=== PATIENT | female | born 1995 | race Caucasian/White ===

== ENCOUNTER 2019-11-07 15:44 | Outpatient (CLI) | payer OTHER, SELFPAY ==
--- NOTE | ~2019-11-07 | US_ITS ---
EXAMINATION: US pelvic complete w TV DATE: 11/07/2019 16:21 INDICATION: Polycystic ovarian syndrome. TECHNIQUE: Multiple transabdominal and transvaginal sonographic images of the pelvis were obtained. COMPARISON: None. FINDINGS: TRANSABDOMINAL ULTRASOUND: The uterus measures 5.9 x 3.6 x 4.5 cm. There is trace free fluid in the pelvis. TRANSVAGINAL ULTRASOUND: The endometrial complex measures 9 mm in thickness. The right ovary measures 5.2 x 3.1 x 3.9 cm. The left ovary measures 2.7 x 2.0 x 2.7 cm. There is a 2.4 cm hemorrhagic cyst in left ovary. There is a 3.3 cm hypoechoic mass in right ovary. There is normal vascular flow in the ovaries. IMPRESSION: 1. 3.3 cm hypoechoic mass in right ovary, which may be a hemorrhagic cyst. Pelvis ultrasound is recom mended in 6-12 weeks. Reviewed, dictated and finalized at location B. IMPRESSION: 1. 3.3 cm hypoechoic mass in right ovary, which may be a hemorrhagic cyst. Pelv is ultrasound is recommended in 6-12 weeks.
== END 2019-11-07 15:45 ==
PROVIDERS: Visit Provider Obstetrics & Gynecology
DX: E28.2 Polycystic ovarian syndrome (principal)
CPT/HCPCS: 76830; 76856

== ENCOUNTER 2019-11-12 07:06 | Emergency (ER) | payer OTHER, SELFPAY ==
--- NOTE | ~2019-11-12 | XR_ITS ---
EXAMINATION: XR chest 2V DATE: 11/12/2019 08:47 INDICATION: Shortness of breath and abdominal pain TECHNIQUE: Frontal and lateral views of the chest are obtained COMPARISON: None available FINDINGS: The lungs are free of acute opacities. There is no pleural effusion or pneumothorax. The ca rdiomediastinal silhouette is normal. The visualized bones and soft tissues are unremarkable. IMPRESSION: 1. No acute cardiopulmonary abnormality. Reviewed, dictated and finalized at location A.
--- NOTE | ~2019-11-12 | US_ITS ---
EXAMINATION: US pelvic complete w TV DATE: 11/12/2019 08:49 INDICATION: Lower pelvic pain, history of PCOS TECHNIQUE: Multiple transabdominal and endovaginal sonographic images of the pelvis were obtained. COMPARISON: 11/07/2019 FINDINGS: The uterus measures 7.4 x 3.6 x 5.1 cm. The endometrial complex measures 5 mm. The right ov lucie measures 5.7 x 4.1 x 3.2 cm. There are multiple cystic lesions of the right ovary. The largest me asures 4.0 x 3.5 x 2.0 cm and has an increasingly cystic appearance when compared to the recent ultra sound. The left ovary measures 2.3 x 1.6 x 2.2 cm. There is normal vascular flow in the right ovary. There is no free fluid in the pelvis. IMPRESSION: 1. Multiple cystic lesions of the right adnexa, one of which is consistent with a resolving hemorrhag ic cyst. Follow-up pelvic ultrasound in 6-12 weeks is recommended. Reviewed, dictated and finalized at location A. IMPRESSION: 1. Multiple cystic lesions of the right adnexa, one of which is consistent with a resolving hemorrhagic cyst. Follow-up pelvic ultrasound in 6-12 weeks is rec ommended.
--- NOTE | ~2019-11-12 | CT_ITS ---
EXAMINATION: CT brain wo con INDICATION: Right temporal headache COMPARISON: None TECHNIQUE: Standard unenhanced head CT. The dose-length product (DLP) was 605.33 mGy-cm. The mA was a djusted according to patient size. Iterative reconstruction technique was employed. FINDINGS: There is no intracranial hemorrhage, acute infarction, or abnormal mass lesion. The ventric les are normal. There is no abnormal mass effect or midline shift. The alfonso-white matter differentiat ion is normal. The basal cisterns are patent. The orbits are normal. The paranasal sinuses, mastoids and calvarium are normal. IMPRESSION: 1. No acute intracranial abnormality. Reviewed, dictated and finalized at location A.
[2019-11-12 07:11] VITALS: BP 124/89; PULSE 81; RESP 16; TEMP 36.8; O2SAT 97
--- NOTE | 2019-11-12 07:19 | ECG_ITS ---
Measurements Intervals [place] Rate: 78 P: 40 KS: 163 QRS: 53 QRSD: 86 T: 43 QT: 391 QTc: 447 Interpretive Statements SINUS RHYTHM BASELINE ARTIFACT- I, II, III, AVR NORMAL ECG Electronically Signed On 11-12-2019 8:21:18 CDT by Rosas Shah D.O.
--- NOTE | 2019-11-12 07:21 | ED.ABDPAIN ---
HPI - Abdominal Pain General Chief Complaint: Abdominal Pain Stated Complaint: abd pain Time Seen by Provider: 11/12/19 07:21 Source: patient Mode of arrival: ambulatory Limitations: no limitations History of Present Illness HPI narrative: Patient is a 24-year-old female with a history of PCOS who presents for evaluation of headache, shortness of breath, abdominal pain. Patient states she awakened this morning suddenly feeling short of breath. She denied any chest pain. Patient states she reached to get her phone and felt lightheaded and dizzy. Patient states then she began to experience a sharp, shooting headache pain on the right side of her head which lasted for approximately 5 seconds before resolving. Patient states was associated with some blurry vision which is now resolved. Patient states she then began to experience lower abdominal cramping which she has a history of and usually attributes to her PCOS, but states this is more severe them PCOS abdominal pain. Patient states she recently had an ultrasound ordered outpatient by Dr. Arauz. Patient denies any current chest pain, shortness of breath, vomiting. She reports mild, aching abdominal pain in the lower abdomen. Menses ended for patient on the . Patient without any recurrent vaginal discharge, vaginal bleeding. No urinary symptoms. No recent sick contacts. No [employer] contacts. No loss of sense of taste or smell. No runny nose, sore throat, cough. Related Data Home Medications Medication Instructions Recorded Confirmed lithium carbonate 450 mg 450 mg PO BID 08/07/19 08/08/19 tablet,extended release Allergies Allergy/AdvReac Type Severity Reaction Status Date / Time ciprofloxacin Allergy Mild Hives Verified 11/12/19 07:15 Review of Systems Review of Systems: Narrative: CONSTITUTIONAL: Denies fever, chills, or sweats. EYES: Denies current visual changes, redness, or discharge. ENT: Denies rhinorrhea, congestion, sore throat, or otalgia. CARDIOVASCULAR: Denies chest pain, palpitations, or edema. RESPIRATORY: Denies current cough or dyspnea. GASTROINTESTINAL: Reports lower abdominal pain GENITOURINARY: Denies dysuria or hematuria. SKIN: Denies rash or itching. MUSCULOSKELETAL: Denies back pain, joint pain, or myalgia. NEUROLOGIC: Denies current headache, numbness, or weakness. PSYCHIATRIC: Reports history of anxiety [facility] Family History Family History Mother Family history of obesity Father Family history of malignant neoplasm of brain Social History Social History Smoking status: Never smoker Second hand tobacco smoke exposure: No Alcohol intake: current Drinks per week: 2 Substance use: never Gender identity (if verbalized by the patient): Female Exam Narrative: Exam Narrative: GENERAL: Awake, alert, conversant HEAD: Normocephalic, atraumatic. EYES: PERRLA and EOMI. ENT: Nares clear, no rhinorrhea or epistaxis. Mucous membranes moist. NECK: Supple. CHEST: No respiratory distress, breathing even and non labored, no chest wall tenderness, lungs are clear without wheezing HEART: Regular rate, sinus rhythm ABDOMEN:Non distended, mild lower abdominal tenderness no rebound, nonrigid, no guarding EXTREMITIES: Normal range of motion. No edema. SKIN: Warm, dry, no rash. NEURO:No focal deficits. Alert and oriented x3 Course Vital Signs Vital signs: Vital Signs Temperature 36.8 C 11/12/19 07:11 Pulse Rate 81 11/12/19 07:11 Respiratory Rate 16 11/12/19 07:11 Blood Pressure 124/89 11/12/19 07:11 Pulse Oximetry 97 11/12/19 07:11 Temperature 36.8 C 11/12/19 07:11 Pulse Rate 71 11/12/19 07:46 Respiratory Rate 15 11/12/19 07:46 Blood Pressure 118/77 11/12/19 07:46 Pulse Oximetry 99 11/12/19 07:46 MDM - Abdominal Pain MDM Narrative Medical decision making narrative: Patient
[2019-11-12 07:28] LABS: Basophils Percent Auto 0.4 % (0.2-1.2); Eosinophils Absolute Auto 0.2 K/mm3 (0-0.3); Eosinophils Percent Auto 2.7 % (0-4.4); Hematocrit 40.5 % (37.0-47.0); Hemoglobin 13.8 g/dL (12.0-15.0); Immature Granulocyte Absolute 0.03 K/mm3 (0.00-0.031); Immature Granulocyte Percent A 0.4 % (0-0.5); Lymphocytes Absolute Auto 2.17 K/mm3 (0.9-3.2); Lymphocytes Percent Auto 29.8 % (18.3-44.2); Mean Corpuscular HGB Conc 34.1 g/dl (32-36); Mean Corpuscular Hemoglobin 30.1 pg (26-34); Mean Corpuscular Volume 88.2 fl (80-100); Mean Platelet Volume 11.4 fl (7.4-10.4); Monocytes Absolute Auto 0.7 K/mm3 (0.1-0.6); Monocytes Percent Auto 9.5 % (2.6-8.5); Neutrophils Absolute Auto 4.2 K/mm3 (1.3-6.7); Neutrophils Percent Auto 57.2 % (45.5-73.1); Platelet Count Result 207 k/mm3 (150-375); Red Blood Count 4.59 M/mm3 (4.2-5.4); Red Cell Distribution Width 12.3 % (11.5-14.5); White Blood Count 7.3 K/mm3 (4.5-10.0)
[2019-11-12 07:46] VITALS: BP 118/77; PULSE 71; RESP 15; O2SAT 99
[2019-11-12 07:46] LABS: Add Urine Microscopic? YES; Appearance Urine Cloudy (Clear); Bacteria Urine 2+ /hpf; Bilirubin Urine Negative (Negative); Blood Urine Negative (Negative); Color Urine Yellow (Yellow); Glucose Urine UA Negative (Negative); Ketones Urine Negative (Negative); Leukocyte Esterase Ur 1+ LEU/UL (Negative); Mucus Urine Few /lpf; Nitrate Urine Negative (Negative); Protein Urine Negative (Negative); Squamous Epithelial Cell Urine Many /hpf (Few); Urobilinogen Urine Negative mg/dL (<2.0); WBC Urine 21-30 /hpf
--- NOTE | 2019-11-12 08:00 | PC.NURSE ---
Pt taken to CT at this time
[2019-11-12 08:01] LABS: Alanine Aminotransferase 27 U/L (4-35); Albumin Level 3.9 g/dL (3.5-5.1); Alkaline Phosphatase 87 U/L (38-126); Anion Gap 5 mmol/L (8-16); Aspartate Amino Transferase 26 U/L (14-36); Bilirubin,Total 0.2 mg/dL (0.2-1.3); Blood Urea Nitrogen 13 mg/dL (7-17); Calcium 8.8 mg/dL (8.4-10.2); Carbon Dioxide 24 mmol/L (22-30); Chloride 107 mmol/L (98-107); Estimated CRCL calculation 121 ml/min; Estimated Glomerular Filt Rate > 60; Glucose 102 mg/dL (65-105); Lipase 101 U/L (23-300); Potassium 4.2 mmol/L (3.4-5.0); Sodium 136 mmol/L (137-145)
--- NOTE | 2019-11-12 08:35 | PC.NURSE ---
Attempted to give medications, pt still in US and CT
[2019-11-12] MEDS: MORPHINE SULFATE 2 MG/ML INJ IV PUSH (09:00)
[2019-11-12] MEDS: ONDANSETRON INJ 4 MG/2 ML VIAL IV PUSH (09:00)
[2019-11-12 11:25] VITALS: BP 114/76; PULSE 61; RESP 18; O2SAT 98
== END 2019-11-12 11:26 | disposition home or self-care (01) ==
PROVIDERS: Emergency Provider Emergency Medicine; PCP Physician Assistant
DX: E28.2 Polycystic ovarian syndrome (principal)
CPT/HCPCS: 36415; 70450; 71046; 76830; 76856; 80053; 81001; 81025; 83690; 85025; 87086; 87088; 93005; 96365; 96375; 99284; J0131; J2270; J2405

== ENCOUNTER 2021-03-21 11:20 | Emergency (ER) | payer OTHER, SELFPAY ==
[2021-03-21 11:36] VITALS: BP 118/80; PULSE 74; RESP 16; TEMP 36.9; O2SAT 99
--- NOTE | 2021-03-21 11:46 | ED.URI ---
HPI - URI/Sore Throat General Stated Complaint: lightheaded,diarrhea,nausea Time Seen by Provider: 03/21/21 11:47 Source: patient and family History of Present Illness HPI Narrative: PATIENT PRESENTS WITH URI SYMPTOMS. OCCASIONAL DIARRHEA. NO ABDOMINAL PAIN NO SHORTNESS OF BREATH AND NO CHEST PAIN. PATIENT DENIES ANY DIZZINESS AT PRESENT DOES REPORT URI SYMPTOMS. NORMAL APPETITE AND NORMAL ACTIVITY. Patient also reports some sinus congestion and tenderness her symptoms have been since 1224. MD elicited complaint: nasal congestion Related Data Allergies Allergy/AdvReac Type Severity Reaction Status Date / Time ciprofloxacin Allergy Mild Hives Verified 03/21/21 12:00 Review of Systems Review of Systems: CONSTITUTIONAL: Denies chills, or sweats. Reports fever and generalized body aches EYES: Denies visual changes, redness, or discharge. ENT: Denies otalgia. Reports nasal congestion runny nose and sore throat CARDIOVASCULAR: Denies chest pain, palpitations, or edema. RESPIRATORY: Denies dyspnea. Reports occasional cough GASTROINTESTINAL: Denies abdominal pain, nausea, vomiting, or diarrhea. GENITOURINARY: Denies dysuria or hematuria. SKIN: Denies rash or itching. MUSCULOSKELETAL: Denies back pain, joint pain, or myalgia. Reports generalized body aches NEUROLOGIC: Denies headache, numbness, or weakness. PSYCHIATRIC: Denies anxiety or depression. [facility] Family History Family History Mother Family history of obesity Father Family history of malignant neoplasm of brain Social History Social History Smoking status: Never smoker Second hand tobacco smoke exposure: No Alcohol intake: current Drinks per week: 2 Substance use: never Gender identity (if verbalized by the patient): Female Comments At time of signature, agree with nursing past medical, surgical, social and family history. There is no relevant family history pertinent to the presenting complaint Exam Narrative: The patient is a well-developed, well-nourished in no acute distress. SKIN: Skin is warm and dry without erythema, swelling or exudate. There is good turgor. No tenting. HEAD: Atraumatic. Normocephalic. No temporal or scalp tenderness. EYES: Moist and bright. Sclera and conjunctivae normal. No discharge. PERRLA. Extraocular motions intact. Gross visual acuity intact. EARS: Pinna is normal shape and contour. Clear external auditory canals. TM pearly arteaga with good cone of light, no erythema or suppuration. Bilateral cerumen noted no gross hearing deficit. NOSE: pink, moist mucosa with good air movement. Clear rhinorrhea without nasal flaring. Septum midline. Mouth: moist mucous membranes. THROAT; mild erythema noted to posterior oropharynx with moderate postnasal drainage. Without exudate or ulceration.. Uvula midline. Normal movement of soft palate. NECK: Supple and nontender with full range of motion without discomfort. No meningeal signs. LUNGS: Equal and bilateral breath sounds without wheezes, rales or rhonchi. CHEST: The chest wall is without retractions or use of accessory muscles. HEART: Has a regular rate and rhythm without murmur, gallops, click or rub. ABDOMEN: Soft, nontender with positive active bowel sounds. No rebound tenderness. EXTREMITIES: Without cyanosis, clubbing or edema. Equal 2+ distal pulses and 2 second capillary refill noted. ANKLE EXAM SKIN INTACT. NORMAL DP PULSE, NORMAL CAP REFILL. NORMAL SENSATION. NEUROLOGIC: alert, active, . The patient moves all extremities with normal muscle strength. Normal muscle tone is noted. Normal coordination is noted. NO focal neurological findings noted. Course Course Level of Care: Express Care Visit Vital Signs Vital signs: Vital Signs Temperature 36.9 C 03/21/21 11:36 Pulse Rate 74 03/21/21 11:36 Respiratory Rate 16 03/21/21 11:36 Blood Pressu
== END 2021-03-21 12:15 | disposition home or self-care (01) ==
PROVIDERS: Emergency Provider Nurse Practitioner Family; PCP Physician Assistant
DX: J06.9 Acute upper respiratory infection, unspecified (principal); R19.7 Diarrhea, unspecified; J01.00 Acute maxillary sinusitis, unspecified; M79.9 Soft tissue disorder, unspecified
CPT/HCPCS: 87081; 87804; 87880; 99213; G0463

== ENCOUNTER 2021-08-27 13:41 | Emergency (ER) | payer OTHER, SELFPAY ==
[2021-08-27 13:45] VITALS: BP 124/83; PULSE 89; RESP 16; TEMP 36.4; O2SAT 99
--- NOTE | 2021-08-27 13:48 | ED.SKABFB ---
HPI - Skin/Abscess/Foreign Bdy General Chief complaint: Skin/Abscess/Foreign Body Stated complaint: poison enrique Time Seen by Provider: 08/27/21 13:49 Source: patient and RN notes reviewed Mode of arrival: ambulatory Limitations: no limitations History of Present Illness HPI narrative: 25-year-old female presents with concern for poison enrique. 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 Reports her rash has continued to worsen and spread. She denies swollen lips, swollen tongue, trouble breathing. She reports she tried several [id number] creams and has been taking antihistamines [id number] without relief. complaint: rash Related Data Allergies Allergy/AdvReac Type Severity Reaction Status Date / Time ciprofloxacin Allergy Mild Hives Verified 08/27/21 13:51 Review of Systems Review of Systems: CONSTITUTIONAL: Denies malaise, chills, sweats, or fever. EYES: Denies redness, or discharge. ENT: Denies rhinorrhea, congestion, swollen lips, swollen tongue CARDIOVASCULAR: Denies chest pain, palpitations, or edema. RESPIRATORY: Denies cough or dyspnea. GASTROINTESTINAL: Denies abdominal pain, nausea, vomiting SKIN: Reports itchy rash on bilateral arms and legs MUSCULOSKELETAL: Denies joint painor myalgia. NEUROLOGIC: Denies headache. All systems reviewed & are unremarkable except as noted in HPI and below PMFSH Family History Family History Mother Family history of obesity Father Family history of malignant neoplasm of brain Social History Social History Smoking status: Never smoker Second hand tobacco smoke exposure: No Alcohol intake: current Drinks per week: 2 Substance use: never Gender identity (if verbalized by the patient): Female Comments At time of signature, agree with nursing past medical, surgical, social and family history. There is no relevant family history pertinent to the presenting complaint Exam Narrative: GENERAL: Well-appearing, well-nourished, and in no acute distress. HEAD: Normocephalic, atraumatic. EYES: PERRLA, conjunctivae clear, and EOMI. ENT: Mucous membranes moist. Oropharynx without edema, erythema or lesions. NECK: Supple. No lymphadenopathy CHEST: Clear to auscultation. No respiratory distress. HEART: Regular rate and rhythm. SKIN: Warm, dry. Patches of raised erythema and mostly in linear patterns noted to bilateral arms and legs NEURO: Alert and oriented x3. PSYCH: Normal mood and affect Course Course Emergency Course: Patient is aware of diagnosis, understands and agrees to treatment plan. Anticipatory guidance given. Patient agrees to follow-up as directed and is aware of reasons to seek care at the emergency department. Portions of this record may have been created with voice recognition software Level of Care: Express Care Visit Vital Signs Vital signs: Reviewed. MDM - Skin/Abscess/Foreign Bdy MDM Narrative Medical decision making narrative: Does not appear at this time to be erythema multiforme, bullous, SJS, TEN; no evidence at this time to suggest RMSF, endocarditis or Lyme disease; patient looks well, nontoxic and is tolerating oral intake; no neurologic signs or symptoms; no headache, photophobia or neck pain; afebrile; appropriate for initial outpatient treatment; discussed the importance of follow-up, patient agrees; question, viral exanthema, contact dermatitis, allergic dermatitis, eczema, urticaria, scabies No soft palate or uvula edema, no tongue, lip edema or other mucosal involvement, no respiratory compromise, no stridor, no wheezing, no wheezing, no history of syncope, no hypotension, no nausea, vomiting, or diarrhea. Instructed patient to go to nearest ER immediately for any worsening symptoms including but not limited to: fever, spreading rash, pain, sore throat, headache, dizziness, chest pain, troubl
== END 2021-08-27 14:00 | disposition home or self-care (01) ==
PROVIDERS: Emergency Provider Nurse Practitioner
DX: L23.7 Allergic contact dermatitis due to plants, except food (principal)
CPT/HCPCS: 99213; G0463

== ENCOUNTER → 2022-02-08 16:35 | Outpatient (CLI) | payer BC, SELFPAY ==
--- NOTE | ~2022-02-08 | XR_ITS ---
XR lumbar spine 2-3V 02/08/2022 17:44 Indication: Back pain Procedure: 3 views lumbar spine Comparison: No prior studies for comparison. Findings: There is accentuated lumbar lordosis. Vertebral body heights are maintained. No significant disc narrowing. No evidence for spondylolysis or spondylolisthesis. Pedicles intact. Sacral foramen are symmetric. There is a focal calcification in the left gluteal region. Impression: 1: No significant abnormality of the lumbar spine. Reviewed, dictated and finalized at location A. S OPERATIONS ASSISTANT Impression: 1: No significant abnormality of the lumbar spine.
--- NOTE | ~2022-02-08 | XR_ITS ---
XR_[id number]_CR INDICATION: Neck pain TECHNIQUE: 4 views of the cervical spine. FINDINGS: No prior studies for comparison. The cervical spine is visualized to the cervicothoracic junction. There is no prevertebral soft tiss ue swelling, listhesis, or loss of vertebral body height. Intervertebral disc spaces are normal. Th e osseous central canal is patent. No displaced cervical spine fractures are identified. IMPRESSION: 1. No acute osseous abnormality of the cervical spine. Reviewed, dictated and finalized at location A. [employer] WORKERS
--- NOTE | ~2022-02-08 | XR_ITS ---
XR thoracic spine 2V 02/08/2022 17:44 Indication: Back pain Procedure: 2 views thoracic spine Comparison: Cervical spine dated 02/08/2022 Findings: Vertebral body heights are maintained. Pedicles intact. Normal thoracic alignment. No fract ure or traumatic malalignment. Draining osseous structures are unremarkable. No paraspinal soft tissu e abnormality. Impression: 1: No significant abnormality of the thoracic spine. Reviewed, dictated and finalized at location A. CORN PRODUCTION MANAGER Impression: 1: No significant abnormality of the thoracic spine.
--- NOTE | ~2022-02-08 | XR_ITS ---
XR hip BI 2V w AP pelvis 02/08/2022 17:44 Indication: Pelvic pain and hip pain Procedure: 3 views each hip including AP pelvis Comparison: No prior studies for comparison. Findings: Pelvic rings are intact. Sacral foramen are symmetric. No fracture, subluxation or dislocat ion. No soft tissue abnormality. No foreign bodies. Impression: 1: No significant bone or joint abnormality. Reviewed, dictated and finalized at location A. ESSIONAL ATHLETES COACH Impression: 1: No significant bone or joint abnormality.
== END ==
PROVIDERS: PCP Chiropractor; Visit Provider Chiropractor
DX: M54.2 Cervicalgia (principal); M54.6 Pain in thoracic spine; M54.50 Low back pain, unspecified; M25.551 Pain in right hip; M25.552 Pain in left hip
CPT/HCPCS: 72040; 72070; 72100; 73521

== ENCOUNTER 2023-07-01 12:19 | Outpatient (CLI) | payer BC, SELFPAY ==
--- NOTE | ~2023-07-01 | US_ITS ---
EXAMINATION: US thyroid DATE: 07/01/2023 12:30 INDICATION: Nontoxic goiter TECHNIQUE: Multiple ultrasound images of the thyroid were obtained. COMPARISON: None. FINDINGS: The right thyroid lobe measures 4.5 x 1.8 x 1.7 cm. The left thyroid lobe measures 5.6 x 1.5 x 1.5 c m. There is an 8 mm solid hypoechoic nodule in the inferior right thyroid lobe which is wider than t all with ill-defined margins and without echogenic foci (TI-RADS 4, moderately suspicious , FNA if >= 1.5 cm, annual followup is >=1 cm). There is normal echotexture, echogenicity and vascular flow throu ghout the remainder of the thyroid gland. IMPRESSION: 1. 8 mm TI-RADS 4 right thyroid nodule which remains below size criteria for either biopsy or follow- up. Recommend clinical followup with repeat imaging if there are changes on physical exam. Reviewed, dictated and finalized at location A. IMPRESSION: 1. 8 mm TI-RADS 4 right thyroid nodule which remains below size criteria for ei ther biopsy or follow-up. Recommend clinical followup with repeat imaging if th ere are changes on physical exam.
== END 2023-07-01 12:20 ==
LOC: MICIMG 12:19
PROVIDERS: PCP Family Medicine; Visit Provider Family Medicine
DX: E04.9 Nontoxic goiter, unspecified (principal)
CPT/HCPCS: 76536

== ENCOUNTER 2023-09-06 13:04 | Outpatient (CLI) | payer BC, SELFPAY ==
--- NOTE | ~2023-09-06 | US_ITS ---
US transvaginal Ordering provider: Soheila Chavez History: . Pelvic pain . Comparison: None. Technique: Transabdominal and endovaginal ultrasound of the pelvis (Doppler ultrasound interrogation techniques used as needed for this exam.) FINDINGS: CERVIX: Normal. UTERUS: Measures 6.7x 2.8x 3.8 cm in length which is within normal limits and is anteverted. No myom etrial masses. Small cystic areas seen anterior to the uterus with nonvisualization of the urinary bl adder. Follow-up advised. ENDOMETRIUM: Normal in thickness measuring 6 mm. (Note: the premenopausal endometrium may measure up to 16 mm when in the secretory phase.) No endometrial masses, cysts or fluid. CUL DE SAC: No free fluid. RIGHT OVARY: Normal in size measuring 5.2x 3.1x 3.8 cm. Normal echotexture. Doppler vascular flow pre sent. Multiple follicles are seen. Echogenic areas are seen with calcification measuring 1.6 x 1.5 x 1.6 cm and 1.8 x 1.5 x 1.6 cm. LEFT OVARY: Normal in size measuring 3.3x 1.6x 2.9 cm. Normal echotexture. Doppler vascular flow pres ent. Multiple follicles seen. The ovary is seen posterior to the uterus. ADNEXA: Normal. No mass. IMPRESSION: Bilateral multiple follicles in the ovaries. Small cystic area seen anterior to the uterus. Follow-up advised. 2. Echogenic areas with minimal calcification in the right ovary most likely normal tissue but follow -up advised. Otherwise, normal pelvic ultrasound. Reviewed, dictated and finalized at location A. IMPRESSION: Bilateral multiple follicles in the ovaries. Small cystic area seen anterior to the uterus. Follow-up advised. 2. Echogenic areas with minimal calcification in the right ovary most likely no rmal tissue but follow-up advised. Otherwise, normal pelvic ultrasound.
== END 2023-09-06 13:05 ==
LOC: MICIMG 13:05
PROVIDERS: PCP Family Medicine
DX: R10.2 Pelvic and perineal pain (principal)
CPT/HCPCS: 76830

== ENCOUNTER 2024-04-14 19:11 | Emergency (ER) | payer OTHER, SELFPAY ==
--- OUTSIDE RECORDS SUMMARY | 2024-04-14 19:13 | XMS_ITS | Encounter Summary ---
Author Organization [facility] Address [address] [place] [address] Care Team Providers Care Software Writer Name Role Phone Elen Montesinos MD Primary Care Provider +1- [phone] Encounter Details Date Type Department Care Team (Late st Contact Info) Description 05/31/2023 Lab Requisition [facility] [address] [place] [address] [place] [address] [facility] [address] [place] [address] Social History Tobacco Use Types Packs/Day Years Used Date Smoking Tobacco: Never Smokeless Tobacco: Never Alcohol Use Standard Drinks/Week Comments Not Currently 0 (1 standard drink = 0.6 oz pur e alcohol) Occ Feeling Safe Answer Date Recorded Are you in a relationship wi th someone who hurts you emotionally and/or physically? 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 Gender Identity Not on file Sexual Orientation Not on file documented as of this encounter Plan of Treatment Not on file documented as of this encounter Procedures Procedure Name Priority Date/Time Associated Diagnosis Comments EXPOSURE PANEL COMPLETION Routine 05/31/2023 10:15 AM CDT EXPOSED NEEDLESTICK PANEL Routine 05/31/2023 10:15 AM CDT EXTRA TUBE (SST/GOLD) Routine 05/31/2023 10:15 AM CDT HIV DETECTION W/REFLX CONFIRMATION Routine 05/31/2023 10:15 AM CDT HEPATITIS C ANTIBODY Routine 05/31/2023 10:15 AM CDT documented in this encounter Results * EXTRA TUBE (SST/GOLD) (05/31/2023 10:15 AM CDT) Blood 05/31/2023 10:1 5 AM CDT 05/31/2023 11:30 AM CDT David Gilmore MD CHEMISTRY ORDERABLES Final R esult Performing Organization Address City/[facility]/ZIP Co de Phone Number [facility] CLIA# [id number] [place] [address] * EXPOSURE PANEL COMPLETION (05/31/2023 10:15 AM CDT) Pathologist [facility] EXPOSURE PANEL RECEIVED Yes 05/31/2023 12:01 PM CDT [facility] Blood 05/31/2023 10:1 5 AM CDT 05/31/2023 11:30 AM CDT David Gilmore MD CHEMISTRY ORDERABLES Final R esult Performing Organization Address City/[facility]/ZIP Co de Phone Number [facility] CLIA# [id number] [place] [address] * HEPATITIS C ANTIBODY W REFLEX (05/31/2023 10:15 AM CDT) HEPATITIS C AB NON-REACT SHERIN Non-react sherin 05/31/2023 1:50 PM CDT [facility] Comment:Antibodies to HCV we re not detected, does not exclude the possibility of exposure to HCV. Blood 05/31/2023 10:1 5 AM CDT 05/31/2023 11:30 AM CDT David Gilmore MD CHEMISTRY ORDERABLES Final R esult [facility] CLIA# [id number] [place] [address] * HIV DETECTION W/REFLX CONFIRMATION (05/31/2023 10:15 AM CDT) HIV-1 AND 2 ABS AND HIV-1 AG Non-reacti ve Non-reacti ve 05/31/2023 5:11 PM CDT [facility] Blood 05/31/2023 10:1 5 AM CDT 05/31/2023 11:30 AM CDT Narrative [facility] - 05/31/2023 5:11 PM CDT Initial HIV testing was performed by ECL[employer] on the Devan Farzana e602 module. Values obtained with different assay methods cannot be used interchangeably. Non- Reactive results does not rule out HIV infection. If acute HIV-1 infection is suspected, submit plasma specimen for HIV-1 RNA quantification test (HIVQU). David Gilmore MD CHEMISTRY ORDERABLES Final R esult [facility] [id number] [address] [place] [address] documented in this encounter Visit Diagnoses Not on filedocumented in this encounter Care Teams Software Writer Relationship Specialty Start Date End Date Elne Montesinos MD [address] [facility] [address] [place] [address] PCP - General Family Practice 10/12/23 documented as of this encounter
--- OUTSIDE RECORDS SUMMARY | 2024-04-14 19:13 | XMS_ITS | Clinical Summary ---
Author Organization [facility] Address [address] [place] [address] Phone Care Team Providers Care Senior Project Coordinator Name Role Phone Elen Montesinos MD Primary Care Provider +1- [phone] Allergies Active Allergy Reactions Criticality Noted Date Comments Ciprofloxacin Hives High 11/25/2022 Reaction: Hives, , Reaction: HIVES Medications hydrOXYzine HCL (ATARAX) 10 mg tablet Take 10 mg by mouth every 8 hours as needed. 03/09/2022 Active amoxicillin-cla vulanate (AUGMENTIN) 875-125 mg tablet Take 1 Tablet by mouth 2 times daily. 03/15/2024 Active letrozole (FEMARA) 2.5 mg tablet Take one tablet (2.5 mg)by mouth on cycle day 3, 4, 5, 6, and 7. 5 Tablet 03/30/2024 Active progesterone micronized (Prometrium) 200 mg Capsule Take one capsule (200mg) by mouth at bedtime on P + 3 through 12. 30 Capsule 3 03/30/2024 Active Active Problems Problem Noted Date Diagnosed Date Obesity (BMI 30-39.9) 02/15/2017 Irritable bowel syndrome with diarrhea 7 Overview (11/26/2022): Last Assessment & Plan: Patient continues have IBS it has improved in terms of frequent. Estimated IBS occurs 4-5 times per month. . Most the time associated with diarrhea but not always patient has taken Imodium for diarrhea on all occasions she result was significant constipation. Use fiber in the past not of IBS experience diarrhea. Additional education material was given UP TO DATE( cme source) Patient information on IBS with With diarrhea, basics Regarding IBS, Beyond Basics, probiotics. I have also advised the patient that the wfpt-zzh-[id number] products ALTOID With peppermint has helped some people with spasms. Yes I would consider mild. Sees inform that there Are prescription medicines available for this fails. Seasonal allergic rhinitis 02/02/2013 Overview (11/26/2022): Seasonal allergies Encounters Date Type Department Care Team Description 04/05/2024 External Device Data STL ABSTRACTION Provider, Abstract 04/03/2024 External Device Data ST[facility] ABSTRACTION Provider, Abstract 03/30/2024 10:15 AM PILE DRIVING SUPERVISOR Office Visit [facility] ORCHESTRA LEADER - [address] [place] [address] Eri Eden MD Irregular periods (Primary Dx); Obesity (BMI 35.0-39.9 without comorbidity); Infertility counseling from Last 3 Months Immunizations Immunization Administration Dates Next Due Influenza Seasonal Unspecifi ed Formulation IM 12/26/2023,12/13/2022,11/27/2021 Family History Medical History Relation Name Comments Breast Cancer Neg Hx Colon Cancer Neg Hx Ovarian Cancer Neg Hx Social History Tobacco Use Types Packs/Day Years Used Date Smoking Tobacco: Never Smokeless Tobacco: Never Tobacco Cessation:Counseling Given: Not Answered Alcohol Use Standard Drinks/Week Comments Yes 0 (1 standard drink = 0.6 oz pur e alcohol) Occ Feeling Safe Answer Date Recorded Are you in a relationship wi th someone who hurts you emotionally and/or physically? 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 Gender Identity Not on file Sexual Orientation Not on file Last Filed Vital Signs Vital Sign Reading Time Taken Comments Blood Pressure 108/78 10/12/2023 2:42 PM CDT Pulse 87 10/12/2023 2:42 PM CDT Temperature 36.7 ??C (98 ??F) 11/25/2022 6:07 AM CDT Respiratory Rate 12 11/25/2022 6:05 AM CDT Oxygen Saturation 97% 10/12/2023 2:42 PM CDT Inhaled Oxygen Concentration - - Weight 105.7 kg (233 lb) 03/30/2024 10:18 AM PILE DRIVING SUPERVISOR Height 165.1 cm (5' 5 ) 03/30/2024 10:18 AM PILE DRIVING SUPERVISOR Body Mass Index 38.77 03/30/2024 10:18 AM PILE DRIVING SUPERVISOR Plan of Treatment Health Maintenance Due Date Last Done Comments DTAP/TDAP/TD VACCINES (1 - Tdap) 2013 HEPATITIS B VACCINES (1 of 3 - 19+ 3-dose series) 2013 CERVICAL CANCER SCREENING 11/26/2025 11/26/2022 INFLUENZA VACCINE Completed 12/26/2023, , 11/27/2021, Additional history exists HPV VACCINES Aged Out No longer eligi ble based on patient's age to complete this topic Procedures Procedure Name Priority Date/Time Associated Diagnosis Comments CERV/VAG CYTO AGE BASED SCREEN PAP Routine 11/26/2022 3:34 PM CDT Screening for malignant neoplasm of cervix Well woman exam with routine gynecological exam from Last 3 Months or Most Recently Relevant to Health Maintenance Results * CERV/VAG CYTO AGE BASED SCREEN PAP (11/26/2022 3:34 PM CDT) COMMENT (PAP): Rogelio Nicole Comment: This order for age-based cervical cancer and STI screening follows ACOG guidelines(PB 168, 140, NRT921). See individual assays for performing site location. CLINICAL INFORMATION Rogelio Nicole Comment:Routine exam LAST MENSTRUAL PERIOD Rogelio Nicole Comment:NONE GIVEN PREV PAP: Rogelio Nicole Comment:NONE GIVEN PREV BX: Rogelio Nicole Comment:NONE GIVEN SOURCE Rogelio Nicole Comment:Endocervix ADEQUACY: Rogelio Nicole Comment: Satisfactory for evaluation. Endocervical/transformation zone component present. Age and/or menstrual status not provided PAP INTERP Rogelio Nicole Comment: Cytology Results: Negative for intraepithelial lesion or malignancy. COMMENT (PAP TEST) Q uest Petr Nicole Comment: This Pap test has been evaluated with computer assisted technology. STOCK BUYER: Gagan brooks Corey Comment: MMD, CT(ASCP) CT Screening Location: [place] [address] [facility], [place] [address] EXPLANATORY NOTE Que [facility] Comment: EXPLANATORY NOTE: The Pap is a screening test for cervical cancer. It is not a diagnostic test and is subject to false negative and false positive results. It is most reliable when a satisfactory sample, regularly obtained, is submitted with relevant clinical findings and history, and when the Pap result is evaluated along with historic and current clinical information. Test Performed at: [place] [address] [place], [place] ??[address] Fabi-Reddu Thi Vo Genital SWAB OF ENDOCERVIX / Unknown 11/26/2022 3:34 PM CDT 11/26/2022 11:05 PM CDT us Batool Rasheed NP PATHOLOGY/CYTOLOGY ORDERABLE S Final Result [facility] [phone] [place] [address] [place] [address] from Last 3 Months or Most Recently Relevant to Health Maintenance [place] [place] [address] [facility] Care Teams Senior Project Coordinator Relationship Specialty Start Date End Date Elen Montesinos MD [address] [facility] [address] [place] [address] PCP - General Family Practice 10/12/23
[2024-04-14 19:28] VITALS: BP 123/78; PULSE 104; RESP 20; TEMP 37.6; O2SAT 98
--- NOTE | 2024-04-14 19:40 | ED_ITS ---
HPI - URI/Sore Throat General Chief Complaint: Upper Respiratory Infection Stated Complaint: Cough/Congestion/Breathing Problem Time Seen by Provider: 04/14/24 19:40 Source: patient, RN notes reviewed and old records reviewed Mode of arrival: ambulatory Limitations: no limitations History of Present Illness HPI Narrative: 28-year-old female who presents to [facility] Care with complaints of cough congestion, some shortness of breath, scratchy throat since last night. Patient reports that she has been taking Tylenol and Ibuprofen and Mucinex for her symptoms. Patient reports that she has felt a little shortness of breath since last night at interval. 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 MD elicited complaint: cough and sore throat Onset (ago): day(s) (since last night) Pain scale (0-10): 4 Able to tolerate fluids by mouth: Yes Treatments prior to arrival: acetaminophen, ibuprofen and other (Mucinex) Related Data Allergies Allergy/AdvReac Type Severity Reaction Status Date / Time ciprofloxacin Allergy Mild Hives Verified 10/03/23 16:06 Review of Systems Review of Systems: CONSTITUTIONAL: Reports malaise, chills, sweats, or fever. EYES: Denies visual changes, redness, or discharge. ENT: Reports rhinorrhea, congestion, sinus pain, no otalgia and scratchy sore throat. CARDIOVASCULAR: Denies chest pain, palpitations, or edema. RESPIRATORY: Reports cough.? reports some dyspnea GASTROINTESTINAL: Denies abdominal pain, states some nausea, no vomiting, no diarrhea SKIN: Denies rash or itching. MUSCULOSKELETAL:body aches positive NEUROLOGIC: Denies headache. All systems reviewed & are unremarkable except as noted in HPI and below PMFSH Past Medical History Medical History Vertigo Routine screening for STI (sexually transmitted infection) Possible Chronic fatigue Early satiety Acute sinusitis Family History Family History Mother Family history of obesity Father Family history of malignant neoplasm of brain Social History Social History Social History: Smoking status: Never smoker Second hand tobacco smoke exposure: No Alcohol intake: current Alcohol use details: Socially Substance use: never Substance use type: does not use Do You Feel Safe in your Home?: Yes Lack of Transportation: No Lack of Food: Never True Current Housing: I Have Housing Concerned About Future Housing: No Difficulty Paying Gas/Electric Bills: No Difficulty Paying for Meds: No Currently Unemployed: No Education: Don't Know Difficulty w/ Childcare or Family Care: No Living arrangements: with family Occupation/Education: occupation Additional occupation/education comments: RN Gender identity (if verbalized by the patient): Female Sexual Orientation (if Verbalized by the Patient): Straight or Heterosexual Comments At time of signature, agree with nursing past medical, surgical, social and family history. There is no relevant family history pertinent to the presenting complaint Exam Narrative: GENERAL: Well-appearing, well-nourished, and in no acute distress. HEAD: Normocephalic EYES: PERRLA, conjunctivae clear ENT: Nares clear, turbinates edematous and erythematous, clear discharge. Mucous membranes moist. TM pearly alfonso with dull light reflex bilaterally; no tragal tenderness. Oropharynx erythematous without lesions. Tonsils not enlarged and without exudate, no drooling, no hoarseness, no trismus, uvula midline. postnasal drainage. NECK: Supple. No lymphadenopathy CHEST: Clear to auscultation, breath sounds equal. No wheezing, rhonchi, rales, or stridor. No respiratory distress, speaks in full sentences.cough noted SAO2 98% on room air HEART: Regular rate and rhythm. No murmur heard. SKIN: Warm, dry, no rash. NEURO: Alert and oriented x3. PSYCH: Normal mood and affect Course Course Emergency Course: Patient is aware of diagnosis, understands and agrees to treatment plan.? Anticipatory guidance given.? Patient agrees to follow-up as directed and is aware of reasons to seek care at the emergency department. Portions of this record may have been created with voice recognition software Level of Care: Express Care Visit Vital Signs Vital signs: Vital Signs Temperature 37.6 C 04/14/24 19:28 Pulse Rate 104 H 04/14/24 19:28 Respiratory Rate 20 04/14/24 19:28 Blood Pressure 123/78 04/14/24 19:28 Pulse Oximetry 98 04/14/24 19:28 Oxygen Delivery Room Air 04/14/24 19:28 Temperature 37.6 C 04/14/24 19:28 Pulse Rate 104 H 04/14/24 19:28 Respiratory Rate 20 04/14/24 19:28 Blood Pressure 123/78 04/14/24 19:28 Pulse Oximetry 98 04/14/24 19:28 Oxygen Delivery Room Air 04/14/24 19:28 Reviewed MDM - URI/Sore Throat MDM Narrative Medical decision making narrative: Differential diagnosis considered: Hernandez virus, strep pharyngitis, allergic rhinitis, upper respiratory tract infection, sinusitis, rhinosinusitis, nasopharyngitis. viral pharyngitis, otitis media, otitis externa, pneumonia, bronchitis, viral cough syndrome, viral syndrome, and influenza.? Exam findings show no acute concerns or changes; patient is non-toxic appearing and is in no distress.? Patient is appropriate for outpatient treatment and follow-up. Differential Diagnosis Differential diagnosis: Likely upper respiratory infection, sinusitis, viral infection, influenza and other (COVID, Cough) Lab Data Attestation: I reviewed the patient's lab results. Lab results narrative: Influenza A, Influenza B negative, COVID antigen negative Critical Care Time Critical Care Time Critical Care Time: No Discharge Plan Discharge Clinical Impression: Flu-like symptoms Patient Disposition: Home, Self-Care Condition: Stable Instructions: Antibiotic Form, Influenza (ED) Additional Instructions: Increase fluids especially juices and water Mnso-vxr-iegypuf cough and cold medicine of your choice for your symptoms Tylenol or ibuprofen for any fever pain Zyrtec Claritin or Joanne daily heat to the face 20-30 minutes 4-6 times a day for pain Salt water gargles, throat lozenges or throat sprays as desired Robitussin or Delsym cough syrup Zofran for nausea If your symptoms persist, change or worsen significantly before you can contact your personal physician then please, without delay, go to the emergency depar tment for further evaluation. Follow-up with PCP in 7-10 days or sooner if needed Patient Language: Belgian Prescriptions: New ondansetron 4 mg tablet,disintegrating 4 mg PO Q6H PRN (Reason: nausea and vomiting) Qty: 14 0RF Follow-up/Referrals: Jaguar,Elen Ambrose MD [Primary Care Provider] - Stand Alone Forms: Work/School Release IP Time of Disposition: 20:13 Quality Vesna Coma Scale Eyes: Open Verbal: Oriented and Alert Motor: Follows Commands Eugene Coma Total Score: 15
[2024-04-14 19:58] VITALS: TEMP 37.9
== END 2024-04-14 20:17 | disposition home or self-care (01) ==
PROVIDERS: Emergency Provider Registered Nurse; PCP Family Medicine
DX: J11.1 Influenza due to unidentified influenza virus with other respiratory manifestations (principal)
CPT/HCPCS: 99213; G0463

== ENCOUNTER 2024-09-11 11:05 | Emergency (ER) | payer OTHER, SELFPAY ==
[2024-09-11 11:12] VITALS: BP 123/72; PULSE 80; RESP 18; TEMP 36.2; O2SAT 100
--- OUTSIDE RECORDS SUMMARY | 2024-09-11 11:16 | XMS_ITS | Encounter Summary ---
Author Organization [facility] Address 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 Gender Identity Not on file Sexual Orientation [...] ORDERABLES Final R esult Performing Organization Address City/[facility]/ZIP Co de Phone Number [facility] CLIA# [id number] [address] [place] [address] * EXPOSURE PANEL COMPLETION (05/31/2023 10:15 AM CDT) Pathologist [facility] EXPOSURE PANEL RECEIVED Yes 05/31/2023 12:01 PM CDT [facility] Blood 05/31/2023 10:1 5 AM CDT 05/31/2023 11:30 AM CDT David Gilmore MD CHEMISTRY ORDERABLES Final R esult Performing Organization Address City/[facility]/ZIP Co de Phone Number [facility] CLIA# [id number] [place] [address] * HEPATITIS C ANTIBODY W REFLEX (05/31/2023 10:15 AM CDT) HEPATITIS C AB NON-REACT SHERIN Non-react sherin 05/31/2023 1:50 PM CDT [facility] Comment:Antibodies to HCV we re not detected, does not exclude the possibility of exposure to HCV. Blood 05/31/2023 10:1 5 AM CDT 05/31/2023 11:30 AM CDT David Gilmore MD CHEMISTRY ORDERABLES Final R esult [facility] CLIA# [id number] [place] [address] * HIV DETECTION W/REFLX CONFIRMATION (05/31/2023 10:15 AM CDT) HIV-1 AND 2 ABS AND HIV-1 AG Non-reacti ve Non-reacti ve 05/31/2023 5:11 PM CDT [facility] Blood 05/31/2023 10:1 5 AM CDT 05/31/2023 11:30 AM CDT Narrative [facility] - 05/31/2023 5:11 PM CDT Initial HIV testing was performed by ECL[employer] on the Devan Farzana e602 module. Values obtained with different assay methods cannot be used interchangeably. Non- Reactive results does not rule out HIV infection. If acute HIV-1 infection is suspected, submit plasma specimen for HIV-1 RNA quantification test (HIVQU). David Gimlore MD CHEMISTRY ORDERABLES Final R esult [facility] [id number] [address] [place] [address] documented in this encounter Visit Diagnoses Not on filedocumented in this encounter Care Teams Weight Trainer Relationship Specialty Start Date End Date Elen Montesinos MD [address] [facility] [address] [place] [address] PCP - General Family Practice 10/12/23 documented as of this encounter
--- OUTSIDE RECORDS SUMMARY | 2024-09-11 11:16 | XMS_ITS | Clinical Summary ---
Author Organization [facility] Address [address] [place] [address] Phone Care Team Providers Care Aix Architect Name Role Phone Elen Montesinos MD Primary Care Provider [phone] Allergies Active Allergy Reactions Criticality Noted Date Comments Ciprofloxacin Hives High 11/25/2022 Reaction: Hives, , Reaction: HIVES Medications hydrOXYzine HCL (ATARAX) 10 mg tablet Take 10 mg by mouth every 8 hours as needed. 03/09/2022 Active letrozole (FEMARA) 2.5 mg tablet Take one tablet (2.5 mg)by mouth on cycle day 3, 4, 5, 6, and 7. 5 Tablet 03/30/2024 Active progesterone micronized (Prometrium) 200 mg Capsule Take one capsule (200mg) by mouth at bedtime on P + 3 through 12. 30 Capsule 3 03/30/2024 Active ondansetron (ZOFRAN ODT) 4 mg Tablet, Rapid Dissolve Dissolve 1 Tablet (4 mg) on top of tounge then swallow with saliva every 4-6 hours. 12 Tablet 06/14/2024 12:21 PM CDT 06/14/2024 Active Active Problems Problem Noted Date Diagnosed [...] have also advised the patient that the [id number] products ALTOID With peppermint has helped some people with spasms. Yes I would consider mild. Sees inform that there Are prescription medicines available for this fails. 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 Gender Identity Not on file Sexual Orientation Not on file Last Filed Vital Signs Vital Sign Reading Time Taken Comments Blood Pressure 108/78 10/12/2023 2:42 PM CDT Pulse 87 10/12/2023 2:42 PM CDT Temperature 36.7 C (98 F) 11/25/2022 6:07 AM CDT Respiratory Rate 12 11/25/2022 6:05 AM CDT Oxygen Saturation 97% 10/12/2023 2:42 PM CDT Inhaled Oxygen Concentration - - Weight 105.7 kg (233 lb) 03/30/2024 10:18 AM VEST BACKER Height 165.1 cm (5' 5) 03/30/2024 10:18 AM VEST BACKER Body Mass Index 38.77 03/30/2024 10:18 AM VEST BACKER Plan of Treatment Health Maintenance Due Date Last Done Comments DTAP/TDAP/TD VACCINES (1 - Tdap) 2013 HEPATITIS B VACCINES (1 of 3 - 19+ 3-dose series) 2013 HPV/Cotest (21-29) 09/21/2015 HPV/Cotest (30-65) 2024 CERVICAL CANCER SCREENING 11/26/2025 PAP SMEAR 11/26/2025 11/26/2022 INFLUENZA VACCINE Completed 12/26/2023, , [...] STI screening follows ACOG guidelines(PB 168, 140, RGC923). See individual assays for performing site location. [...] has been evaluated with computer assisted technology. LOW PRESSURE BOILER TENDER: Gagan Nicole Comment: MMD, CT(ASCP) CT Screening Location: [place] [address], [place] [address] EXPLANATORY NOTE [facility] Comment: EXPLANATORY NOTE: The Pap [...] and current clinical information. Test Performed at: [place] [address] [place] [address] Fabi-Saida Thi Vo Genital SWAB OF ENDOCERVIX / Unknown 11/26/2022 3:34 PM CDT 11/26/2022 11:05 PM CDT us Batool Rasheed NP PATHOLOGY/CYTOLOGY ORDERABLE S Final Result [facility] [phone] [place] [address] [place] [address] from Last 3 Months or Most Recently Relevant to Health Maintenance Insurance [employer] Member Subscriber Plan / Payer (Ef fective 2024-Present) Name:Ana Funes Relation to Subscriber:Self Name:Ana Funes Payer ID:Not on file Type:Not on file Address: [address] [address] Care Teams Aix Architect Relationship Specialty Start Date End Date Elen Montesinos MD [address] [facility] [address] [place] [address] PCP - General Family Practice 10/12/23
--- NOTE | 2024-09-11 11:45 | ED.GENADULT ---
HPI - General Adult General Chief complaint: Eye Problems Stated complaint: Eye Problem Source: patient History of Present Illness HPI narrative: Patient presents for evaluation of bilateral upper eyelid irritation and swelling. Symptom onset yesterday. She is not aware of precipitating triggers. She tried taking and low-dose hydroxyzine without much improvement. She denies any drainage from the eyes or visual disturbance. She saw her eye doctor earlier today and they said it was not pinkeye. No recent exposures to pinkeye. Related Data Home Medications ?Medication ?Instructions ?Recorded ?Confirmed ?Last Taken ?Type hydroxyzine HCl 50 mg tablet 50 mg PO TID PRN 09/03/24 09/03/24 Unknown History melatonin 10 mg tablet 10 mg PO QHS 09/03/24 09/03/24 Unknown History hydroxyzine HCl 10 mg tablet mg 09/11/24 Unknown History Allergies Allergy/AdvReac Type Severity Reaction Status Date / Time ciprofloxacin Allergy Mild Hives Verified 09/11/24 11:17 Review of Systems Review of Systems: CONSTITUTIONAL: Denies fever, chills, or sweats. EYES: Reports itching and swelling to the upper eyelids bilaterally. Denies visual disturbance or drainage from eyes. ENT: Denies rhinorrhea, congestion, sore throat, or otalgia. CARDIOVASCULAR: Denies chest pain, palpitations, or edema. RESPIRATORY: Denies cough or dyspnea. GASTROINTESTINAL: Denies abdominal pain, nausea, vomiting, or diarrhea. GENITOURINARY: Denies dysuria or hematuria. SKIN: Denies rash or itching. MUSCULOSKELETAL: Denies back pain, joint pain, or myalgia. NEUROLOGIC: Denies headache, numbness, dizziness, or weakness. PSYCHIATRIC: Denies anxiety or depression. [facility] Past Medical History Medical History Vertigo Routine screening for STI (sexually transmitted infection) Possible Chronic fatigue Early satiety Acute sinusitis Surgical History Surgical History No pertinent past surgical history Family History Family History Mother Family history of obesity Father Family history of malignant neoplasm of brain Social History Social History Social History: Smoking status: Never smoker Second hand tobacco smoke exposure: No Alcohol intake: current Alcohol use details: Socially Substance use: never Substance use type: does not use Do You Feel Safe in your Home?: Yes Lack of Transportation: No Lack of Food: Never True Current Housing: I Have Housing Concerned About Future Housing: No Difficulty Paying Gas/Electric Bills: No Difficulty Paying for Meds: No Currently Unemployed: No Education: Don't Know Difficulty w/ Childcare or Family Care: No Living arrangements: alone Occupation/Education: occupation Additional occupation/education comments: RN Gender identity (if verbalized by the patient): Female Sexual Orientation (if Verbalized by the Patient): Straight or Heterosexual Exam Narrative: GENERAL: Well-appearing, well-nourished, and in no acute distress. HEAD: Normocephalic, atraumatic. EYES: PERRLA and EOMI. Bilateral upper eyelids are erythematous. Trace swelling noted to upper eyelids bilaterally ENT: Nares clear, no rhinorrhea or epistaxis. Mucous membranes moist. Oropharynx without tonsillar hypertrophy exudate or other lesions. Bilateral TMs pearly alfonso nonbulging NECK: Supple. No adenopathy or masses. No carotid bruits or JVD CHEST: Clear to auscultation. No respiratory distress. No wheezes rales or rhonchi HEART: Regular rate and rhythm. No murmur heard. Normal peripheral pulses. ABDOMEN: Soft, nontender, nondistended, normal active bowel sounds. EXTREMITIES: Normal range of motion. No edema. SKIN: Warm, dry, no rash. NEURO: No focal deficits. Alert and oriented x3. PSYCH: Normal mood and affect. Course Course Emergency Course: This is a 28-year-old female who presented for evaluation of irritation and itching to the bilateral upper eyelids. This appears to be some type of allergic reaction. Will start Medrol Dosepak. Follow-up with primary provider. Go to the ER for worsening symptoms. Patient in agreement with plan of care. Level of Care: Express Care Visit Vital Signs Vital signs: Vital Signs Temperature 36.2 C L 09/11/24 11:12 Pulse Rate 80 09/11/24 11:12 Respiratory Rate 18 09/11/24 11:12 Blood Pressure 123/72 09/11/24 11:12 Pulse Oximetry 100 09/11/24 11:12 Oxygen Delivery Room Air 09/11/24 11:12 Temperature 36.2 C L 09/11/24 11:12 Pulse Rate 80 09/11/24 11:12 Respiratory Rate 18 09/11/24 11:12 Blood Pressure 123/72 09/11/24 11:12 Pulse Oximetry 09/11/24 11:12 Oxygen Delivery Room Air 09/11/24 11:12 Medical Decision Making Vital Signs Vital Signs: Vital Signs Temperature 36.2 C L 09/11/24 11:12 Pulse Rate 80 09/11/24 11:12 Respiratory Rate 18 09/11/24 11:12 Blood Pressure 123/72 09/11/24 11:12 Pulse Oximetry 09/11/24 11:12 Oxygen Delivery Room Air 09/11/24 11:12 Temperature 36.2 C L 09/11/24 11:12 Pulse Rate 80 09/11/24 11:12 Respiratory Rate 18 09/11/24 11:12 Blood Pressure 123/72 09/11/24 11:12 Pulse Oximetry 09/11/24 11:12 Oxygen Delivery Room Air 09/11/24 11:12 Discharge Plan Discharge Clinical Impression: Allergies Patient Disposition: Home Condition: Stable Instructions: Antibiotic Form, Allergies (ED) Patient Language: Slovak Prescriptions: New methylprednisolone [Medrol (Brent)] 4 mg tablets,dose pack See Rx Instructions .ROUTE .COMPLEX Qty: 21 0RF Rx Instructions: for 6 days No Action ondansetron 4 mg tablet,disintegrating 4 mg PO Q6H PRN (Reason: nausea and vomiting) Qty: 14 0RF hydroxyzine HCl 10 mg tablet lorazepam 0.5 mg tablet 0.5 mg PO DAILY PRN (Reason: anxiety) Qty: 30 0RF melatonin 10 mg tablet 10 mg PO QHS hydroxyzine HCl 50 mg tablet 50 mg PO TID PRN Follow-up/Referrals: Elen Montesinos MD [Primary Care Provider] - Time of Disposition: 11:44
== END 2024-09-11 11:47 | disposition home or self-care (01) ==
PROVIDERS: Emergency Provider Nurse Practitioner; PCP Family Medicine
DX: T78.40XA Allergy, unspecified, initial encounter (principal)
CPT/HCPCS: 99213; G0463